=== PATIENT | female | born 1945 | race African-American/Black ===

== ENCOUNTER 2016-08-17 04:19 | Emergency (ER) | payer OTHER ==
--- NOTE | 2016-08-17 05:37 | PDOC ---
"History of Present Illness - General Stated Complaint: LT FOOT PAIN Time Seen by Provider: 08/17/16 05:24 History Source: Patient Exam Limitations: No Limitations - History of Present Illness Initial Comments: 08/17/16 05:34 71yo Female patient w/ PmHx: PAD presents to ED c/o left 2nd toe pain. Patient reports symptoms have been ongoing and she was admitted to [facility] last week for infection of 2nd toe. Patient states she was seen by vascular surgeon Dr. Kelly POLO and give an appointment for procedure to help increase blood flow to leg on September 03. Patient state she ran out of pain medication, has been using Tylenol with no relief. She denies any other complaints at this time. 1. Bactrim 2. Oxycodone 5/325 3. Neurotin 4. Lasix Medications prescribed to patient at [facility]. Occurred: reports: last week Severity: Yes: moderate Lower Extremity Pain Location: left: 2nd toe Method of Injury: Yes: other (See HPI) Modifying Factors: improves with: pain medication Extremity Pain Location - Extremity Pain Location Extremity Pain Locations: left: 2nd toe Past History - Travel Traveled outside of the country in the last 30 days: No Close contact w/someone who was outside of country & ill: No - Past Medical History Home Medications: Ambulatory Orders Oxycodone HCl/Acetaminophen [Percocet 10-325 mg Tablet] 1 each PO Q8H PRN #21 tablet MDD 3 tab 08/17/16 Review of Systems - Review of Systems Able to Perform ROS?: Yes Is the patient limited Estonian proficient: No Musculoskeletal: Yes: Other (Lt 2nd toe pain) All Other Systems: Reviewed and Negative *Physical Exam - Physical Exam General Appearance: Yes: Nourished, Appropriately Dressed, Mild Distress. No: Apparent Distress, Moderate Distress, Severe Distress Respiratory/Chest: positive: Lungs Clear, Normal Breath Sounds. negative: Chest Tender, Respiratory Distress, Accessory Muscle Use, Labored Respiration, Rapid RR Cardiovascular: positive: Regular Rhythm, Regular Rate Musculoskeletal: positive: Normal Inspection. negative: CVA Tenderness Extremity: positive: Normal Capillary Refill, Normal Range of Motion, Tender ( Lt 2nd toe), Swelling. negative: Normal Inspection, Erythema, Inflammation Integumentary: positive: Normal Color, Dry, Warm Neurologic: positive: piercing specialist II-XII NML intact, Fully Oriented, Alert, Normal Mood/ Affect, Normal Response, Motor Strength 5/5 Progress Note - Progress Note Progress Note: The Drug Utilization Report below displays all of the controlled substance prescriptions, if any, that your patient has filled in the last twelve months. The information displayed on this report is compiled from pharmacy submissions to the Department, and accurately reflects the information as submitted by the pharmacies. This report was requested by: Julio Elmore | Reference #: [id number] Others' Prescriptions Patient Name: Shanta Pantoja Date: 1945 Address: [address] [place] [address] Sex: Female Rx Written Rx Dispensed Drug Quantity Days Supply Prescriber Name 08/07/2016 08/07/2016 oxycodone-acetaminophen 5-325 mg tab 20 7 Blair Mendoza MD 07/26/2016 07/26/2016 oxycodone-acetaminophen 5-325 mg tab 15 5 Christy Huynh (MS) 07/10/2016 07/10/2016 oxycodone-acetaminophen 5-325 mg tab 12 4 Adela Puente MD * - Drugs marked with an asterisk are compound drugs. If the compound drug is made up of more than one controlled substance, then each controlled substance will be a separate row in the table. *DC/Admit/Observation/Transfer Diagnosis at time of Disposition: Toe pain, left - Discharge Dispostion Disposition: HOME Condition at time of disposition: Stable Admit: No - Prescriptions Prescriptions: Oxycodone HCl/Acetaminophen [Percocet 10-325 mg Tablet] 1 each PO Q8H PRN #21 tablet MDD 3 tab PRN Reason: Severe Pain - Patient Instructions Printed Discharge Instructions: DI for Foot Pain, Peripheral Artery Disease Additional Instructions: FOLLOW UP WITH DR. MENDOZA. CALL TO SCHEDULE APPOINTMENT. I HAVE INCREASE THE STRENGTH OF YOUR MEDICATION. DO NOT TAKE EXTRA TYLENOL WITH THIS MEDICATION. KEEP YOUR APPOINTMENT FOR August. RETURN IF ANY CONCERNS FOR FURTHER EVALUATION. Print Language: PASHTO"
[2016-08-17 05:40] VITALS: BP 181/81; PULSE 78; TEMP 98; BMI 25.9
--- NOTE | 2016-08-17 08:13 | PDOC ---
*Physical Exam - Vital Signs Last Vital Signs Temp Pulse Resp BP Pulse Ox 98.0 F 78 14 181/81 100 08/17/16 05:38 08/17/16 05:38 08/17/16 05:38 08/17/16 05:38 08/17/16 05:38 *DC/Admit/Observation/Transfer Diagnosis at time of Disposition: Toe pain, left - Discharge Dispostion Disposition: HOME - Prescriptions Prescriptions: Oxycodone HCl/Acetaminophen [Percocet 10-325 mg Tablet] 1 each PO Q8H PRN #21 tablet MDD 3 tab PRN Reason: Severe Pain - Referrals - Patient Instructions Printed Discharge Instructions: Peripheral Artery Disease, DI for Foot Pain Additional Instructions: FOLLOW UP WITH DR. RUBIO. CALL TO SCHEDULE APPOINTMENT. I HAVE INCREASE THE STRENGTH OF YOUR MEDICATION. DO NOT TAKE EXTRA TYLENOL WITH THIS MEDICATION. KEEP YOUR APPOINTMENT FOR August. RETURN IF ANY CONCERNS FOR FURTHER EVALUATION. Print Language: SERBIAN - Post Discharge Activity
== END 2016-08-17 05:58 | disposition home or self-care (01) ==
LOC: JER 04:19
DX: M79.675 Pain in left toe(s) (principal); I73.89 Other specified peripheral vascular diseases
CPT/HCPCS: 99281-25

== ENCOUNTER 2017-02-28 12:18 | Emergency (ER) | payer OTHER ==
[2017-02-28 12:34] VITALS: BMI 27.3
[2017-02-28] MEDS ORDERED: PIPERACIL/TAZOB 3.375 GM 3.375 GM/50 ML PREMIX IVPB ONE (13:36)
[2017-02-28] MEDS ORDERED: SODIUM CHLORIDE 1,000 ML IV STA (13:55)
[2017-02-28] MEDS ORDERED: VANCOMYCIN 1,000 MG in DEXTROSE 5%-WATER - 250 ML IVPB ONE (13:55)
--- NOTE | 2017-02-28 14:01 | PDOC ---
Attending Attestation - Resident Resident Name: Gibran Gamez - ED Attending Attestation I have performed the following: I have examined & evaluated the patient, The case was reviewed & discussed with the resident, I agree w/resident's findings & plan, Exceptions are as noted - HPI HPI: 02/28/17 13:58 71-year-old female with past medical history of diabetes, peripheral arterial disease status post left femoral bypass, chronic left foot ulcer presents with acute on chronic left wound on foot. Patient reports since July, she developed a small ulcer which is under evaluation and care by [facility] by Dr. Escobar. Patient's wound has been progressively worsened and the patient is scheduled for a left lower extremity angiogram March 05. However, the patient's wound has progressively worsened and her home oxycodone has not been improving the symptoms. Denies fevers or chills but states that the wound itself is worsening. Came into the ED for evaluation. - Physicial Exam PE: 02/28/17 13:59 GENERAL: Awake, alert, and fully oriented, in no acute distress. HEAD: No signs of trauma EYES: PERRLA, EOMI, sclera anicteric, conjunctiva clear ENT: Auricles normal inspection, hearing grossly normal, nares patent, oropharynx clear without exudates. NECK: Normal ROM, supple, no lymphadenopathy, JVD, or masses LUNGS: Breath sounds equal, clear to auscultation bilaterally. No wheezes, and no crackles HEART: Regular rate and rhythm, normal S1 and S2, no murmurs, rubs or gallops EXTREMITIES: Normal range of motion, no edema. LLE: ~7 x 7 cm deep left dorsal foot wound with foul smell and drainage. S/p 2nd digit amputation NEUROLOGICAL: Cranial nerves II through XII grossly intact. Normal speech, normal gait S - Medical Decision Making 02/28/17 14:00 Vital Signs Temp Pulse Resp BP Pulse Ox 98.2 F 123 H 20 182/81 98 02/28/17 12:29 02/28/17 12:29 02/28/17 12:29 02/28/17 12:29 02/28/17 13:11 Patient's wound is concerning for acute on chronic left wound infection. Empiric antibiotics, vancomycin and Zosyn were ordered. The resident Dr. Gamez had contacted [facility] and spoke to surgeon Dr. Pitt which up to the patient for transfer to [facility] for further management. 02/28/17 14:48 Will obtain a foot xray to r/o osteomyelitis
--- NOTE | 2017-02-28 14:03 | PDOC ---
History of Present Illness - General Chief Complaint: Pain Stated Complaint: FOOT PAIN Time Seen by Provider: 02/28/17 12:40 History Source: Patient Exam Limitations: No Limitations - History of Present Illness Initial Comments: 02/28/17 14:03 71F with pmh of HTN, HLD, DM2 and chronic foot ulcer 2ndary to peripheral arterial disease s/p arterial bypass in September presents with 10/10 pain of the dorsal left foot, worsening healing of the wound with widening of the borders, burning sensation on the sole. Patient developed keloids at the site of the scar from the bypass. Wound is currently 7x7cm, draining and has a fetid odor. Saw her Vascular Surgeon from [facility] last week (Dr. Mendoza) who scheduled an arteriogram with her on 03/05/17. 02/28/17 14:05 Past History - Past Medical History Allergies/Adverse Reactions: Allergies Allergy/AdvReac Type Severity Reaction Status Date / Time tetanus immune globulin Allergy Swelling Verified 02/28/17 12:34 Home Medications: Ambulatory Orders Oxycodone HCl/Acetaminophen [Percocet 10-325 mg Tablet] 1 each PO Q8H PRN #21 tablet MDD 3 tab 08/17/16 COPD: No Diabetes: Yes HTN: Yes - Suicide/Smoking/Psychosocial Hx Smoking History: Never smoked Have you smoked in the past 12 months: No Hx Alcohol Use: Yes (SOCIAL) Drug/Substance Use Hx: No Substance Use Type: None Review of Systems - Review of Systems Able to Perform ROS?: Yes Is the patient limited Indonesian proficient: No Constitutional: No: Symptoms Reported HEENTM: No: Symptoms Reported Respiratory: No: Symptoms reported Cardiac (ROS): No: Symptoms Reported ABD/GI: No: Symptoms Reported : No: Symptoms Reported Musculoskeletal: No: Symptoms Reported Integumentary: Yes: See HPI Neurological: Yes: See HPI Endocrine: No: Symptoms Reported Hematologic/Lymphatic: No: Symptoms Reported All Other Systems: Reviewed and Negative *Physical Exam - Vital Signs Last Vital Signs Temp Pulse Resp BP Pulse Ox 98.2 F 123 H 20 182/81 98 02/28/17 12:29 02/28/17 12:29 02/28/17 12:29 02/28/17 12:29 02/28/17 13:11 - Physical Exam General Appearance: Yes: Nourished, Appropriately Dressed. No: Apparent Distress HEENT: positive: EOMI, COLE, Normal ENT Inspection Neck: negative: Tender, Trachea midline Respiratory/Chest: positive: Lungs Clear, Normal Breath Sounds. negative: Chest Tender, Respiratory Distress Cardiovascular: positive: Tachycardia Gastrointestinal/Abdominal: positive: Normal Bowel Sounds, Soft. negative: Tender Extremity: positive: Other (Left dorsal foot: s/p 2nd toe amputation, 7x7c, circular lesion, tendon-deep, fetid odor, draining ) Neurologic: positive: Fully Oriented, Alert, Normal Mood/Affect ED Treatment Course - LABORATORY CBC & Chemistry Diagram: 02/28/17 13:22 02/28/17 13:22 Medical Decision Making - Medical Decision Making 02/28/17 14:24 71F with left foot infection afebrile. Labs pending, cultures sent. Would culture sent. Foot xray pending. Patient Vasc. Surgeon called, spoke to Dr. Curtis Pitt covering for Dr. Mendoza. Accepted to transfer the patient for continuation of care since the patient will most likely benefit from surgical care. *DC/Admit/Observation/Transfer Diagnosis at time of Disposition: Left foot infection - Discharge Dispostion Disposition: TRANSFER ACUTE CARE/OTHER HOSP Condition at time of disposition: Stable - Referrals Referrals: STAFF,NOT ON [Primary Care Provider] - - Patient Instructions - Post Discharge Activity - Transfer to Acute Care Facility Receiving Facility: [facility] Accepting Physician:: Dr. Curtis Pitt
[2017-02-28 14:13] LABS: HEMATOCRIT 39.2 % (32.4-45.2); HEMOGLOBIN 12.4 GM/dL (10.7-15.3); MCH 26.9 pg (25.7-33.7); MCHC 31.7 g/dl (32.0-36.0); MEAN CELL VOLUME 84.9 fl (80-96); MEAN PLT VOLUME 9.3 fl (7.5-11.1); RBC 4.61 M/mm3 (3.60-5.2); RDW 13.4 % (11.6-15.6)
[2017-02-28 14:45] LABS: ALBUMIN 3.3 g/dl (3.4-5.0); ALK PHOS 87 U/L (45-117); ANION GAP 14 (8-16); BILIRUBIN,TOTAL 0.4 mg/dL (0.2-1.0); BLOOD UREA NITROGEN 22 mg/dL (7-18); CHLORIDE 96 mmol/L (98-107); CO2 28 mmol/L (21-32); CREATININE 1.2 mg/dL (0.55-1.02); GLUCOSE,RANDOM 213 mg/dL (74-106); POTASSIUM 4.1 mmol/L (3.5-5.1); SGOT/AST 11 U/L (15-37); SGPT/ALT 13 U/L (12-78); SODIUM 138 mmol/L (136-145); TOT PROT 8.2 g/dl (6.4-8.2)
[2017-02-28] MEDS ORDERED: VANCOMYCIN 1 GRAM (PRE-DOCKED) 1,000 MG/250 ML BAG IVPB ONE (15:10)
[2017-02-28] MEDS ORDERED: PIPERACILLIN/TAZOB 3.375 GM 3.375 GM/50 ML BAG IVPB ONE (15:10)
[2017-02-28] MEDS ORDERED: HYDROmorphone HCL CARPU-JECT 1 MG/1 ML DISP.SYRIN IVPB ONE (15:39)
[2017-02-28] MEDS ORDERED: HYDROmorphone HCL CARPU-JECT 2 MG/1 ML DISP.SYRIN ONE (15:45)
[2017-02-28 16:45] LABS: PLATELET COUNT 437 K/MM3 (134-434); WHITE BLOOD COUNT 12.1 K/mm3 (4.0-10.0)
[2017-02-28 16:48] LABS: PLATELET ESTIMATE INCREASED
[2017-02-28 19:01] VITALS: BP 155/79; PULSE 79; TEMP 98.1
== END 2017-02-28 19:02 | disposition short-term general hospital (02) ==
LOC: JER 12:18
PROC: 3E0337Z Introduction of Electrolytic and Water Balance Substance into Peripheral Vein, Percutaneous Approach (ICD-10-PCS; principal; 2017-02-28)
PROC: 3E03329 Introduction of Other Anti-infective into Peripheral Vein, Percutaneous Approach (ICD-10-PCS; 2017-02-28)
PROC: 3E03329 Introduction of Other Anti-infective into Peripheral Vein, Percutaneous Approach (ICD-10-PCS; 2017-02-28)
PROC: 3E033NZ Introduction of Analgesics, Hypnotics, Sedatives into Peripheral Vein, Percutaneous Approach (ICD-10-PCS; 2017-02-28)
DX: E11.622 Type 2 diabetes mellitus with other skin ulcer (principal); L97.528 Non-pressure chronic ulcer of other part of left foot with other specified severity; Z79.84 Long term (current) use of oral hypoglycemic drugs; I73.89 Other specified peripheral vascular diseases; I10 Essential (primary) hypertension; E78.5 Hyperlipidemia, unspecified; Z89.422 Acquired absence of other left toe(s)
CPT/HCPCS: 36415; 73630-TC-LT; 80053; 85025; 85651; 86140; 87040; 87070; 87186; 87205; 96361; 96365; 96374; 96375; 99285-25; J7030